=== PATIENT | male | born 1960 | race Caucasian/White ===

== ENCOUNTER 2021-12-31 23:25 | Emergency (ER) | payer MEDICAID, SELFPAY ==
--- NOTE | ~2021-12-31 | XR_ITS ---
EXAMINATION: XR TIBIA AND FIBULA, LEFT CLINICAL INFORMATION: Fall. Pain. COMPARISON: None TECHNIQUE: AP and lateral views of the left tibia and fibula were obtained. FINDINGS: Plate and screw fixation hardware at the proximal tibia. Likely bone cement in place. Hardware appears intact. No acute fractures seen. Alignment grossly maintained at the knee and ankle. The bones are osteopenic. Vascular calcifications. XR/XR tibia fibula LT 2V IMPRESSION: Internal fixation hardware of the proximal tibia appears intact. No acute osseous abnormality noted, although evaluation is limited at the proximal tibia due to the overlying hardware.
--- NOTE | ~2021-12-31 | XR_ITS ---
EXAMINATION: XR LUMBOSACRAL SPINE CLINICAL INFORMATION: Fall with pain COMPARISON: None TECHNIQUE: Three views of the lumbosacral spine. FINDINGS: No fracture or subluxation. Vertebral body height and alignment maintained. Disc spaces are maintained with small multilevel endplate osteophytes. Multilevel facet arthropathy. The sacroiliac joints are symmetric. The visualized sacrum is intact. Normal bowel gas pattern. XR/XR lumbar spine 2-3V IMPRESSION: Mild degenerative change throughout the lumbar spine.
[2021-12-31 23:30] VITALS: BP 129/69; BP 132/50; PULSE 70; PULSE 73; RESP 22; TEMP 36.9; O2SAT 96; BMI 24.7
[2022-01-01] MEDS: oxyCODONE HCl Immed Release 5 MG TABLET PO (00:38)
--- NOTE | 2022-01-01 00:41 | ED_ITS ---
HPI - Fall General Chief Complaint: Fall Stated Complaint: Fall/Lower Back Pain/Leg pain Time Seen by Provider: 01/01/22 00:32 Source: patient and EMS Mode of arrival: EMS Limitations: no limitations History of Present Illness HPI Narrative: 61-year-old male came in by ambulance, patient normally is wheelchair bound, patient was trying to go the bathroom when he got up from the wheelchair he lost balance and fell backward. Patient is complaining of back pain and left leg pain, patient has a chronic low back pain and leg pain. Patient declined any head injury LOC. Past medical history significant for throat cancer. Related Data Previous Rx's Medication Instructions Recorded oxycodone 5 mg tablet 5 mg PO BID PRN pain #7 tabs 01/01/22 Allergies Allergy/AdvReac Type Severity Reaction Status Date / Time No Known Allergies Allergy Verified 12/31/21 23:36 Review of Systems Review of Systems: All other systems are reviewed and are negative Constitutional: Reports as per HPI and Reports no additional constitutional complaints Eyes: Reports as per HPI and Reports no additional eye complaints Reports system reviewed and no additional complaints, except as documented Cardiovascular: Reports as per HPI and Reports no additional cardiovascular complaints Respiratory: Reports as per HPI and Reports no additional respiratory complaints Gastrointestinal: Reports as per HPI and Reports no additional gastrointestinal complaints Genitourinary: Reports no additional female genitourinary complaints Musculoskeletal: Reports no additional musculoskeletal complaints Skin/Breast: Reports system reviewed and no additional complaints, except as docu Psychiatric: Reports no additional psychiatric complaints Endocrine: Reports no additional endocrine complaints Hematologic/Lymphatic: Reports no additional hematologic/lymphatic complaints Allergic/Immunologic: Reports no additional allergic/immunologic complaints Reports system reviewed and no additional complaints, except as documented and Reports Abnormal speech present Physical Exam Vital Signs: Vital Signs: Last Vital Signs Temp 98.4 F 12/31/21 23:30 Pulse 73 12/31/21 23:30 Resp 22 H 12/31/21 23:30 BP 132/50 L 12/31/21 23:30 Pulse Ox 96 12/31/21 23:30 O2 Del Method 12/31/21 23:30 BMI result Body Mass Index 24.7 Vital signs have been reviewed as appeared to be correct. Blood pressure normal. Heart rate normal. Respiration rate normal. Temperature normal. Oxygen saturation normal. Appearance: Alert. Oriented X3. No acute distress. Head: Normal external exam. Normocephalic. Atraumatic. No Lira signs noted. No raccoon eyes noted Eyes: PERRLA. EOMI. Conjunctiva and sclera normal. Eyelids normal. ENT: TM's Normal. Pharynx normal. Uvula midline. Moist mucous membranes. No trismus noted. No drooling noted. No muffled voice noted. Neck: Normal inspection. Neck supple. Tracheostomy opening, FROM. No adenopat hy. Thyroid Normal. No meningeal signs. No neck mass noted. CVS: Normal heart rate and rhythm. Heart sound normal. No murmurs noted. Pulses normal throughout. Respiratory: No respiratory distress. Painless inspiration. Breath sounds normal. No wheezes/rales/rhonchi noted. Chest nontender. No accessory muscle usage noted or decreased air movement noted. Abdomen: Soft and nontender. Bowel sounds normal in all 4 quadrants. No distention noted. No organomegaly noted. No visible injury noted. Back: No CVA tenderness. Full range of motion noted. No lower back deformity no step-off tenderness to touch Skin: Skin warm and dry. Normal skin color. Normal skin turgor. No rashes/lesions/lacerations noted. Extremities: Left leg tenderness, no deformity. With chronic wound on the anterior of left leg. Neuro: Oriented X 3. Cranial nerve exam: II-XII are grossly intact No motor deficit. No sensory deficit. Reflexes normal. Course Course Course Narrative: 61-year-old male who is a wheelchair-bound fell twice today hurting his back, no head injury. X-ray is unremarkable for acute fracture. Will discharge on the oxycodone. MDM - Fall Imaging Data Lumbar spine: Attestation: I personally reviewed and interpreted this imaging study as follows: Radiologist's impression: Degenerative disease with no acute fracture. Left leg x-ray: Attestation: I personally reviewed and interpreted this imaging study as follows: Radiologist's impression: No acute fracture or deformity. Discharge Plan Discharge Clinical Impression: Accident due to mechanical fall without injury, Acute exacerbation of chronic low back pain Patient Disposition: Home, Self-Care Instructions: Chronic Back Pain (DC) Prescriptions: New oxycodone 5 mg tablet 5 mg PO BID PRN (Reason: pain) Qty: 7 0RF Rx Instructions: Partial Fill upon patient request.
[2022-01-01 03:05] VITALS: BP 132/68; PULSE 74; RESP 18; O2SAT 95
== END 2022-01-01 03:06 | disposition home or self-care (01) ==
LOC: HO.ED 01-01 02:50
PROVIDERS: Emergency Provider Emergency Medicine
DX: Z04.3 Encounter for examination and observation following other accident (principal); G89.29 Other chronic pain; M54.50 Low back pain, unspecified; M79.605 Pain in left leg
CPT/HCPCS: 72100; 73590; 99283

== ENCOUNTER 2022-01-09 22:28 | Emergency (ER) | payer MEDICAID, SELFPAY ==
--- NOTE | 2022-01-09 22:51 | PC.NURSE ---
Per ems: pt is very hostile with EMS assessment. Pt has history of being aggressive but not violent . Pt was found by [facility] in town knocking on strangers door . Concerns presented Regarding pt's ability to gather resources for wheelchair repair and medication compliance was present.
--- NOTE | 2022-01-09 23:00 | PC.NURSE ---
Pt is able to stand and pivot w/ assistance to wheel chair in [place]
[2022-01-09 23:01] VITALS: BP 147/55; PULSE 70; RESP 18; TEMP 36.8; O2SAT 95; BMI 24.3
[2022-01-09 23:23] LABS: Appearance Urine Cloudy; Color Urine Yellow; Glucose Urine UA Negative (Negative); Leukocyte Esterase Urine Negative (Negative); Nitrite Urine Negative (Negative); Specific Gravity - Urine <= 1.005 (1.005-1.025); Urine Blood Negative (Negative); Urine Ketones Negative (Negative); Urine Protein Negative (Neg-Trace)
[2022-01-09 23:41] LABS: Amphetamine Screen Urine Not Detected (Not Detect); Barbiturates, Urine Not Detected (Not Detect); Benzodiazepines Screen Urine Not Detected (Not Detect); Cannabinoid Screen Urine Not Detected (Not Detect); Cocaine Screen Urine Not Detected (Not Detect); Fentanyl, urine Not Detected (Not Detect); Opiate Screen Urine Not Detected (Not Detect); Phencyclidine Screen Urine Not Detected (Not Detect)
[2022-01-10 00:48] VITALS: BP 136/57; PULSE 77; RESP 18; O2SAT 98
--- NOTE | 2022-01-10 01:27 | ED_ITS ---
HPI - Back Pain/Injury General Chief Complaint: Fall Stated Complaint: Back pain post fall Time Seen by Provider: 01/10/22 00:46 Source: patient Mode of arrival: EMS Limitations: language barrier (Patient had throat cancer status post surgery, with trach. Patient right answers but can talk but has no voice) History of Present Illness HPI Narrative: 61-year-old male who has a history of chronic back pain secondary to degenerative disc disease who presents emergency department complaining of severe lower back pain. The patient states that [facility] for approximately 8 months. He states that when he was discharged he was not given sufficient social services specialist. The patient was taking oxycodone 20 mg 4 times a day for his pain and he states that he does not have a doctor that prescribed this medication for him. He states that on Saturday (6 days prior to evaluation) he fell and now has acute pain on top of his chronic pain. States he is having severe, constant pain in his left and right lower back area which is 10/10. He states that his doctor wanted to put him on Suboxone and he has been on Suboxone in the past which is helped his pain however he has no appetite and cannot eat while he is on Suboxone. He states that he is not getting sufficient money or food stamps and needs social service help. He denied fever, chills, chest pain, shortness of breath, nausea, vomiting, diarrhea. The patient lives in [facility]. The patient states that he has gone to different emergency departments and he had not gotten any help with his pain control or with his social issues.. The patient was seen in our emergency department on 01/01/2022 for fall with increased back pain. He had x-rays at that time which were unremarkable. He was given a limited number of oxycodone 5 mg tablets (7). In reviewing the prescription drug monitoring program informa tion, the patient has had 6 prescription since 10/04/2021 for small amounts of oxycodone from 3 providers and 3 prescriptions for Suboxone for small amounts from 3 providers. Filled Drug QTY Days Prescriber Dispenser SAMPLE SAWYER 01/01/2022 Oxycodone Hcl (Ir) 5 Mg [facility]00 [facility] [place] 11/12/2021 Suboxone 8 Mg-2 Mg Sl Film 10.00 5 Ni [facility] (1604) [place] 10/26/2021 Suboxone 8 Mg-2 Mg Sl Film 14.00 14 Za [facility] (1604) [place] 10/13/2021 Oxycodone Hcl (Ir) 5 Mg Tablet 16.00 4 Br [facility] (4079) [place] 10/09/2021 Suboxone 8 Mg-2 Mg Sl Film 10.[address] [facility] (4079) [place] 10/04/2021 Oxycodone Hcl (Ir) 5 Mg Tablet 10.00 5 [facility] (7509) [place] Related Data Previous Rx's Medication Instructions Recorded oxycodone 5 mg tablet 5 mg PO BID PRN pain #7 tabs 01/01/22 Allergies Allergy/AdvReac Type Severity Reaction Status Date / Time No Known Allergies Allergy Verified 12/31/21 23:36 Review of Systems Review of Systems: Yes all other systems are reviewed and are negative [facility] Past Medical History [facility] Narrative: Past medical history: Chronic back pain secondary to degenerative disc disease, throat cancer status post laryngectomy done at [facility] in [place], January 2021. Social history: The patient lives in [facility]. He drinks beer 2 to 3 times a week. He smokes 4-5 cigarettes per day. He states that he smokes marijuana occasionally. Social History Social History Advance Directives: No Advance Directives Information Provided: No Physical Exam Vital Signs: Vital Signs: Last Vital Signs Temp 98.1 F 01/10/22 04:23 Pulse 74 01/10/22 04:23 Resp 20 01/10/22 04:23 BP 152/76 H 01/10/22 04:23 Pulse Ox 95 01/10/22 04:23 O2 Del Method 01/10/22 04:23 BMI result Body Mass Index 24.3 Const: Other: Awake, alert, male patient, anxious, disheveled, the patient has a tracheostomy stoma, he has no voice since he had a laryngectomy, he is able to talk but he is difficult to comprehend, he is able to write out answers to questions without any difficulty. HEENT: Head: Yes normal to inspection, Yes normocephalic and Yes atraumatic Ears: external ears normal General nose exam: Normal external nose present Face and sinus: Yes normal facial exam Mouth: Normal oral and palatal mucosa present Throat: Yes posterior oropharynx normal Eyes: General: appearance normal, both eyes and all related structures Pupils: Equal, round and reactive pupils present Neck: Other: Tracheostomy stoma Neck: Yes no lymphadenopathy, Yes trachea midline and Yes supple Chest: Chest palpation & inspection: normal inspection of the chest and normal palpation of entire chest wall Resp: Effort & Inspection: normal respiratory effort and able to speak in complete sentences Auscultation: clear to auscultation bilaterally Cardio: Rate: regular rate Rhythm: regular rhythm Heart sounds: S1 normal heart sound present, S2 normal heart sound present and no murmurs GI: Inspection: Yes normal to inspection Palpation (GI): Soft to palpation, nontender and no guarding Auscultation: normal bowel sounds Back/Spine/Pelvis: Other: Tender bilateral lumbar sacral paraspinal muscles, tender along the lumbar sacral spine Skin: General skin exam: no rashes or lesions noted Neuro: Cranial nerves: Yes CN's II-XII intact bilaterally and Yes Equal, round and reactive pupils present Cognition (Neuro): normal cognition Motor exam (neuro): 5/5 motor strength present throughout Extrem: Other: Patient is able to move both lower extremities symmetrically this is caused pain in his back Psych: Appearance: grossly normal Affect: Anxious affect present Attitude: cooperative Course Course Course Narrative: 61-year-old male with a history of chronic back pain secondary to degenerative disc disease who now has acute pain after a fall 6 days prior. The patient states that he was on oxycodone 20 mg 4 times a day but his doctor has stopped prescribed this medication and he has not been able to get into pain management. He states that he has gone to multiple ERs and is gotten small prescriptions for oxycodone and Suboxone with no relief his discomfort. The patient states that he needs social service help and he has not been able to get an since he is unable to talk on the phone. Patient's physical examination did reveal lower lumbar sacral paraspinal muscle tenderness as well as vertebral tenderness. I w ill order blood work on this patient to include CBC, CMP, lipase, urinalysis, urine tox screen. Patient will be treated with oxycodone 20 mg orally. If the patient is medically cleared, he will be kept in the emergency department until he can be evaluated by our case reviewer today to see if he can help get him into some type of pain management program or get him more social service help. 0516: Laboratory evaluation: Low H&H 13.5 and 38 low sodium 132. Low CO2 30. LFTs were normal. Lipase normal. Urine tox screen positive for marijuana pain alcohol below detectable limits. The patient did get some relief with his oxycodone 10 mg orally. 0516: Start physician observation: The patient will be placed in physician observation since you need to be kept in the emergency department until we can get a case management consult and physical therapy consult to see if we can get the patient into a pain management program, acute rehab or increased outpatient services. Also, I did order oxycodone 10 mg every 6 hours for pain while he is here in the emergency department. Also obtain a medical reconciliation in order as outpatient medications. 0733: Physician observation continued: The patient is resting comfortably. At the end of my shift, the patient's care was turned over to my colleague, Dr. Peoples MDM - Back Pain/Injury Lab Data Result diagrams: 01/10/22 02:11 01/10/22 02:11 Labs: Lab Results 01/09/22 01/09/22 01/10/22 Range/Units 23:15 23:15 02:10 WBC (4.8-10.8) X10*3/uL RBC (4.60-5.80) X10*6/uL Hgb (14.0-18.0) g/dl Hct (42.0-52.0) % MCV (80.0-98.0) fL MCH (27.0-33.0) pg MCHC (31.0-36.0) g/dl RDW (11.0-16.0) % Plt Count (160-400) X10*3/uL MPV (9.4-12.4) fL Immature Gran % (Auto) (0.0-0.4) % Neut % (Auto) (45-73) % Lymph % (Auto) (20-40) % Bartholomew % (Auto) (2-11) % Eos % (Auto) (0-4) % Baso % (Auto) (0-2) % Lymph # (Auto) (1.2-4.9) X10*3/uL Bartholomew # (Auto) (0.1-1.2) X10*3/uL Eos # (Auto) (0.0-0.4) X10*3/uL Baso # (Auto) (0.0-0.2) X10*3/uL Abs Immat Gran (auto) (0.00-0.03) X10*3/uL Absolute Neuts (auto) (2.0-8.3) x10*3/uL Absolute Nucleated RBC (0.0-0.012) X10*3/uL Nucleated RBC % (auto) (0.0-0.2) /100WBC Sodium (135-145) mmol/L Potassium (3.3-5.1) mmol/L Chloride (96-108) mmol/L Carbon Dioxide (22-29) mmol/L Anion Gap (12-20) BUN (9-16) mg/dL Creatinine (0.5-1.4) mg/dL Estim Creat Clear Calc Estimated GFR Random Glucose (60-115) mg/dL Calcium (8.4-10.2) mg/dL Total Bilirubin (0.0-1.0) mg/dL AST (5-37) U/L ALT (0-40) U/L Alkaline Phosphatase (39-117) U/L Total Protein (6.5-8.0) g/dL Albumin (3.5-5.0) g/dL Lipase (8-78) U/L Urine Color Yellow Urine Appearance Cloudy Urine pH 6.0 (5.0-9.0) Ur Specific [place] <= 1.005 (1.005-1.025) Urine Protein Negative (Neg-Trace) mg/dL Urine Glucose (UA) Negative (Negative) mg/dL Urine Ketones Negative (Negative) mg/dL Urine Blood Negative (Negative) Urine Nitrite Negative (Negative) Ur Leukocyte Esterase Negative (Negative) Urine Opiates Screen Not Detected (Not Detect) Urine Fentanyl Screen Not Detected (Not Detect) Ur Barbiturates Screen Not Detected (Not Detect) Ur Phencyclidine Scrn Not Detected (Not Detect) Ur Amphetamines Screen Not Detected (Not Detect) U Benzodiazepines Scrn Not Detected (Not Detect) Urine Cocaine Screen Not Detected (Not Detect) U Marijuana (THC) Screen Not Detected (Not Detect) Ethyl Alcohol mg/dL COVID-19 (SHAI) Negative (Negative) COVID-19 Clin Com See Note 01/10/22 01/10/22 01/10/22 Range/Units 02:11 02:11 02:14 WBC 6.9 (4.8-10.8) X10*3/uL RBC 4.29 L (4.60-5.80) X10*6/uL Hgb 13.5 L (14.0-18.0) g/dl Hct 38.5 L (42.0-52.0) % MCV 89.7 (80.0-98.0) fL MCH 31.5 (27.0-33.0) pg MCHC 35.1 (31.0-36.0) g/dl RDW 13.2 (11.0-16.0) % Plt Count 259 (160-400) X10*3/uL MPV 8.6 L (9.4-12.4) fL Immature Gran % (Auto) 0.3 (0.0-0.4) % Neut % (Auto) 62.5 (45-73) % Lymph % (Auto) 23.6 (20-40) % Bartholomew % (Auto) 9.7 (2-11) % Eos % (Auto) 3.3 (0-4) % Baso % (Auto) 0.6 (0-2) % Lymph # (Auto) 1.6 (1.2-4.9) X10*3/uL Bartholomew # (Auto) 0.7 (0.1-1.2) X10*3/uL Eos # (Auto) 0.2 (0.0-0.4) X10*3/uL Baso # (Auto) 0.0 (0.0-0.2) X10*3/uL Abs Immat Gran (auto) 0.02 (0.00-0.03) X10*3/uL Absolute Neuts (auto) 4.3 (2.0-8.3) x10*3/uL Absolute Nucleated RBC 0.000 (0.0-0.012) X10*3/uL Nucleated RBC % (auto) 0.0 (0.0-0.2) /100WBC Sodium 132 L (135-145) mmol/L Potassium 3.5 (3.3-5.1) mmol/L Chloride 100 (96-108) mmol/L Carbon Dioxide 20 L (22-29) mmol/L Anion Gap 16 (12-20) BUN 5 L (9-16) mg/dL Creatinine 0.61 (0.5-1.4) mg/dL Estim Creat Clear Calc 129.6 Estimated GFR > 60 Random Glucose 98 (60-115) mg/dL Calcium 8.9 (8.4-10.2) mg/dL Total Bilirubin 0.3 (0.0-1.0) mg/dL AST 21 (5-37) U/L ALT 16 (0-40) U/L Alkaline Phosphatase 99 (39-117) U/L Total Protein 7.4 (6.5-8.0) g/dL Albumin 3.9 (3.5-5.0) g/dL Lipase 38 (8-78) U/L Urine Color Urine Appearance Urine pH (5.0-9.0) Ur Specific [place] (1.005-1.025) Urine Protein (Neg-Trace) mg/dL Urine Glucose (UA) (Negative) mg/dL Urine Ketones (Negative) mg/dL Urine Blood (Negative) Urine Nitrite (Negative) Ur Leukocyte Esterase (Negative) Urine Opiates Screen Not Detected (Not Detect) Urine Fentanyl Screen Not Detected (Not Detect) Ur Barbiturates Screen Not Detected (Not Detect) Ur Phencyclidine Scrn Not Detected (Not Detect) Ur Amphetamines Screen Not Detected (Not Detect) U Benzodiazepines Scrn Not Detected (Not Detect) Urine Cocaine Screen Not Detected (Not Detect) U Marijuana (THC) Screen POSITIVE H (Not Detect) Ethyl Alcohol < 10 mg/dL COVID-19 ([facility]) (Negative) COVID-19 Clin Com Discharge Plan Discharge Clinical Impression: Acute back pain Qualifiers: Back pain location: low back pain Chronic back pain Qualifiers: Back pain location: low back pain Patient Disposition: Still a Patient Prescriptions: No Action oxycodone 5 mg tablet 5 mg PO BID PRN (Reason: pain) Qty: 7 0RF Rx Instructions: Partial Fill upon patient request.
[2022-01-10] MEDS: oxyCODONE HCl Immed Release 5 MG TABLET 20 MG PO ×2 (02:00→08:12)
[2022-01-10 02:15] LABS: MANUAL DIFF FLAG NO
[2022-01-10 02:16] VITALS: BP 155/78; PULSE 80; RESP 18; O2SAT 96
[2022-01-10 02:16] LABS: Basophils Percent Auto 0.6 % (0-2); Eosinophils Absolute Auto 0.2 X10*3/uL (0.0-0.4); Eosinophils Percent Auto 3.3 % (0-4); Hematocrit 38.5 % (42.0-52.0); Hemoglobin 13.5 g/dl (14.0-18.0); Imm Gran Abs Auto 0.02 X10*3/uL (0.00-0.03); Imm Gran Pct Auto 0.3 % (0.0-0.4); Lymphocytes Absolute Auto 1.6 X10*3/uL (1.2-4.9); Lymphocytes Percent Auto 23.6 % (20-40); Mean Corpuscular HGB Conc 35.1 g/dl (31.0-36.0); Mean Corpuscular Hemoglobin 31.5 pg (27.0-33.0); Mean Corpuscular Volume 89.7 fL (80.0-98.0); Mean Platelet Volume 8.6 fL (9.4-12.4); Monocytes Absolute Auto 0.7 X10*3/uL (0.1-1.2); Monocytes Percent Auto 9.7 % (2-11); Neutrophils Absolute Auto 4.3 x10*3/uL (2.0-8.3); Neutrophils Percent Auto 62.5 % (45-73); Platelet Count 259 X10*3/uL (160-400); Red Blood Count 4.29 X10*6/uL (4.60-5.80); Red Cell Distribution Width 13.2 % (11.0-16.0); White Blood Count 6.9 X10*3/uL (4.8-10.8)
[2022-01-10 02:29] LABS: COVID-19 Test Negative (Negative)
[2022-01-10 02:35] LABS: Amphetamine Screen Urine Not Detected (Not Detect); Barbiturates, Urine Not Detected (Not Detect); Benzodiazepines Screen Urine Not Detected (Not Detect); Cannabinoid Screen Urine POSITIVE (Not Detect); Cocaine Screen Urine Not Detected (Not Detect); Fentanyl, urine Not Detected (Not Detect); Opiate Screen Urine Not Detected (Not Detect); Phencyclidine Screen Urine Not Detected (Not Detect)
[2022-01-10 02:37] LABS: Alanine Aminotransferase 16 U/L (0-40); Albumin Level 3.9 g/dL (3.5-5.0); Alkaline Phosphatase 99 U/L (39-117); Anion Gap 16 (12-20); Aspartate Amino Transferase 21 U/L (5-37); Bilirubin Total 0.3 mg/dL (0.0-1.0); Blood Urea Nitrogen 5 mg/dL (9-16); Calcium 8.9 mg/dL (8.4-10.2); Carbon Dioxide 20 mmol/L (22-29); Chloride 100 mmol/L (96-108); Creatinine Clr Calc Pharmacy 129.6; Estimated Glomerular Filt Rate > 60; Ethanol < 10 mg/dL; Glucose Random 98 mg/dL (60-115); Lipase 38 U/L (8-78); Potassium 3.5 mmol/L (3.3-5.1); Sodium 132 mmol/L (135-145); Total Protein 7.4 g/dL (6.5-8.0)
[2022-01-10 04:23] VITALS: BP 152/76; PULSE 74; RESP 20; TEMP 36.7; O2SAT 95
--- NOTE | 2022-01-10 04:59 | PC.NURSE ---
Patient requested this typewriter repairer to call to [place] [employer] to inquire where is his broken w/c and a guitar. This RN called [place] [employer] at [phone], spoke to officer Rashaad who reported pt's w/c and a guitar at the police office and will be dropped by pt's house when he return home. patient informed and in agreeement.
[2022-01-10 07:29] VITALS: BP 152/76; PULSE 74; O2SAT 95
[2022-01-10 07:54] VITALS: BP 158/59; PULSE 67; RESP 18; TEMP 36.6; O2SAT 96
[2022-01-10 08:10] VITALS: BP 137/67; PULSE 61; RESP 16; O2SAT 97
--- NOTE | 2022-01-10 08:33 | PC.NURSE ---
This RN working as float nurse. Contacted [employer] to arrange for delivery of patients wheelchair and guitar.
== END 2022-01-10 09:21 | disposition home or self-care (01) ==
PROVIDERS: Emergency Provider Emergency Medicine Emergency Medical Services
DX: M51.36 Other intervertebral disc degeneration, lumbar region (principal); M54.50 Low back pain, unspecified; Z20.822 Contact with and (suspected) exposure to COVID-19; Z79.899 Other long term (current) drug therapy
CPT/HCPCS: 80053; 80307; 81003; 82077; 83690; 85025; 87635; 97161; 99284

== ENCOUNTER 2022-01-27 04:16 | Emergency (ER) | payer MEDICAID, SELFPAY ==
--- NOTE | ~2022-01-27 | CT_ITS ---
EXAMINATION: CT LUMBAR SPINE WITHOUT CONTRAST CLINICAL INFORMATION: Low back pain. COMPARISON: X-ray dated 01/01/2022. TECHNIQUE: Multidetector helical imaging acquired in the axial plane with generation of reformatted acquisitions. This CT examination was performed using dose optimization techniques as appropriate, variously including the following: *Automated exposure control *Adjustment of mA and/or kV according to patient size (this includes techniques or standardized protocols for targeted exams where dose is matched to indication/reason for exam; i.e. extremities or head) *Use of iterative reconstruction technique DLP; 500 mGy-cm FINDINGS: There is a mild leftward curvature of the lower lumbar spine. Severe disc space narrowing with endplate bridging ossification noted at the L5-S1 level. No compression fractures are evident. The paraspinal soft tissues appear normal. Significant atherosclerotic wall calcifications of the lower abdominal aorta and common iliac arteries noted. Vacuum phenomenon and SI joint space narrowing noted. L1-L2: Mild disc bulge and mild facet arthropathy with very mild encroachment upon the central canal. Patent foramina. L2-L3: Diffuse disc bulge and hypertrophic facet arthropathy with thickening of the ligamentum flavum and dorsal epidural fat prominence resulting in severe thecal sac distortion. Cikttcqg-aa-[id number] central canal stenosis. Bulging disc results in mild right and moderate left foraminal encroachment. L3-L4: Hypertrophic facet arthropathy and broad-based disc bulge with thickening of the ligamentum flavum resulting in moderate central canal stenosis with dorsal epidural fat prominence. Qikp-rh-ymmemtci foraminal narrowing. L4-L5: Disc bulge and facet arthropathy without central canal stenosis. Bulging disc and osseous spurring result in gfhhteeo-bx-[id number] right foraminal encroachment. Milder left foraminal narrowing. L5-S1: Severe degenerative endplate changes and disc space narrowing with facet arthropathy. No central canal stenosis. Ijqi-dn-kaoscytl foraminal narrowing, more so on the left side. CT/CT lumbar spine wo IV con IMPRESSION: Multilevel spondylosis with ozqjthnd-hg-bugrnc central canal stenosis and significant thecal sac distortion at the L2-L3 and L3-L4 levels. No compression fractures. Severe disc space narrowing and degenerative endplate spurring with bridging ossification anteriorly at the L5-S1 level.
[2022-01-27 04:19] VITALS: BP 142/68; PULSE 88; O2SAT 96
[2022-01-27 04:37] VITALS: BP 130/64; PULSE 76; RESP 18; TEMP 36.6; O2SAT 95; BMI 23.7
--- NOTE | 2022-01-27 08:14 | ED.GENADULT ---
HPI - General Adult General Chief complaint: Extremity Problem Stated complaint: BACK PAIN S/P MOVING HEAVY FURNITURE PER EMS Time Seen by Provider: 01/27/22 05:17 Source: patient Mode of arrival: ambulatory Limitations: no limitations History of Present Illness HPI narrative: 61-year-old male who has a history of chronic back pain secondary to degenerative disc disease who presents emergency department complaining of severe lower back pain status post heavy lifting yesterday. Patient tells me that yesterday he was moving heavy furniture and started experiencing back pain localized to his lower back that at times radiates in to his extremities bilaterally usually above the knee. Patient tells me a family member recently , and he took some of their furniture for his apartment which he tried moving by himself such as desks, tables. Patient tells me pain is severe, constant in nature worse with movement better at rest. Patient denies fevers, chills, chest pain, shortness of breath, nausea, vomiting, abdominal pain, saddle paresthesias, weakness, urinary/bowel incontinence/retention, history of back surgeries or back procedures, IV drug abuse. Patient reports used to be on oxycodone for pain control however he is no longer getting prescribed this. Patient is noted to have a dressing to his left lower extremity, he tells me he has a chronic wound to the left lower extremity which he is currently being followed for. Patient also mentions that he recently got a social contact worker however, has not been able to get food stamps. I asked him if he needed additional resources at home and wanted to speak to physical therapy any case management while he was here and he tells me no. Related Data Previous Rx's Medication Instructions Recorded oxycodone 5 mg tablet 5 mg PO BID PRN pain #7 tabs 01/01/22 cyclobenzaprine 10 mg tablet 10 mg PO BEDTIME PRN muscle spasm 01/27/22 #7 tabs lidocaine 5 % topical patch 1 patch topical DAILY PRN pain #15 01/27/22 ea Allergies Allergy/AdvReac Type Severity Reaction Status Date / Time No Known Allergies Allergy Verified 12/31/21 23:36 Review of Systems Review of Systems: Constitutional : No Weight loss, No Fever, No Chills, No Fatigue, No Malaise ENT/Mouth : No sore throat, No Rhinorrhea Eyes: No Eye Pain, No Swelling, No Redness Cardiovascular : No Chest Pain, No SOB, No Dyspnea on Exertion, No Orthopnea, No Edema, No Palpitations Respiratory : No Cough, No Sputum, No Wheezing Gastrointestinal : No Nausea, No Vomiting, No Diarrhea, No Constipation, No abdominal Pain, No Hematochezia, No Melena Genitourinary : No Dysuria, No Urinary Frequency, No Hematuria, Musculoskeletal : + joint pain, No Myalgias, No Joint Swelling Skin : No Skin Lesions, No rash Neuro : No Weakness, No Numbness, No Dizziness, No Headache Psych : No Anxiety/Panic, No Depression All other systems reviewed and are negative Yes all other systems are reviewed and are negative [facility] Past Medical History Attestation statement: The following information was validated with the patient. Source: old records reviewed and nursing notes reviewed Social History Social History Advance Directives: No Advance Directives Information Provided: No Physical Exam ED Vital Signs: Vital Signs - 24 hr 01/27/22 04:37 01/27/22 08:37 01/27/22 08:43 Temperature 97.9 F 98.2 F Pulse Rate 76 62 Respiratory Rate 18 19 Blood Pressure 130/64 165/69 H Pulse Oximetry 95 95 Oxygen Delivery Method Room Air Room Air BMI result Body Mass Index 23.7 vss Appearance: Alert.? Oriented X3.? No acute distress.? Head: Normocephalic, atraumatic, no step-offs or deformities Eyes: Pupils equal, round and reactive to light.? CVS: Normal heart rate and rhythm.? Pulses normal.? Respiratory: No respiratory distress.? Breath sounds normal.? Abdomen: Soft and nontender.? Skin: Skin warm and dry.? Normal skin color.? Normal skin turgor.? Extremities: No lower extremity edema.? No calf ttp. 5/5 strength to bilateral upper and lower extremities 2+ DTRs to bilateral patellar region + chronic wound below left knee with overlying dressing (present for 3 years per patient and currently being followed by medical professional) Back: + lower lumbar sacral paraspinal muscle tenderness as well as vertebral tenderness. no C-spine tenderness, full range of motion however painful secondary to nguyen, no CVA tenderness bilaterally Neuro: Oriented X 3.? No motor deficit.? No sensory deficit. CN 2-12 intact . At this time patient cannot ambulate secondary to pain however will re-evaluate prior to patient discharge no saddle paresthesias. Normal sensation to lower extremities. Course Reevaluation(s) Reevaluation #1: Patient was able to get up from a chair and ambulate to a wheelchair within the room. Patient ambulating with steady gait normal coordination. Time: 08:40 Reevaluation #2: Before I was able to go a speak to patient about CT results patient wheeled himself out of the emergency department and eloped. Patient states that he wants more pain meds, I was willing to give patient pain medicine however was going to wait a little longer as he got morphine at almost 09:00. I also had discussed with him PT and case management which she refused. Patient was able to take a few steps and ambulate while in our department. No saddle paresthesias, low suspicion for cauda equina. Nursing staff did speak to patient and patient tells them that he does not want to be here any longer. Patient left without me being able to go speak to him. At time of elopement patient was able to ambulate, he was eating and drinking without difficulty. Appeared comfortable and in no signs of distress per nursing. Time: 12:03 Medical Decision Making [facility] Narrative Medical decision making narrative: 08 61-year-old male history of chronic back pain presents with acute back pain status post heavy lifting. To note patient has presented to the emergency department before for similar issues, acute on chronic back pain it appears as though he was seen here on 01/10/2022, at that time patient states he was on oxycodone 20 mg 4 times a day however his doctor stopped prescribing that medication and he was not able to get into pain management. He was evaluated by Physical therapy and Case Management and was dc home w/ info for [facility]. And PCP info for chronic pain folow up Physical examination with painful range of motion to back particularly with flexion, extension. Lower lumbar sacral paraspinal muscle tenderness as well as vertebral tenderness. Neuro nonfocal. DTRs intact. Normal sensation to lower extremities, no saddle paresthesias. Likely acute on chronic back pain secondary to degenerative disc disease. Unlikely cauda equina or epidural abscess. Other differentials include lumbar strain/sprain. Medical Records Medical records reviewed: Yes I reviewed the patient's medical records. Lab Data Lab results reviewed: Yes I reviewed the patient's lab results. Critical Care Time Critical Care Time Critical Care Time: No Discharge Plan Discharge Clinical Impression: Acute exacerbation of chronic low back pain Patient Disposition: Elopement Instructions: Pain Management (ED), Chronic Pain (ED) Additional Instructions: Take your medications as prescribed. If you were prescribed antibiotics today, it is important that you take your medication to their entirety, do not skip any doses, do not finish them early. Follow-up with your primary care provider this week. Return to the emergency department with new or worsening symptoms. Such as fevers, chills, chest pain, shortness of breath, nausea, vomiting, dizziness, headache, vision changes, lethargy In case of emergency call 911 Prescriptions: New cyclobenzaprine 10 mg tablet 10 mg PO BEDTIME PRN (Reason: muscle spasm) Qty: 7 0RF lidocaine 5 % adhesive patch,medicated 1 patch topical DAILY PRN (Reason: pain) Qty: 15 0RF Rx Instructions: leave on most painful area for up to 12 hrs No Action oxycodone 5 mg tablet 5 mg PO BID PRN (Reason: pain) Qty: 7 0RF Rx Instructions: Partial Fill upon patient request. Referrals: Physician,Unknown J [Primary Care Provider] - 2 days
[2022-01-27 08:37] VITALS: PULSE 62; RESP 19; TEMP 36.8; O2SAT 95
[2022-01-27 08:43] VITALS: BP 165/69
[2022-01-27] MEDS: Morphine Sulfate Immed Release 15 MG TABLET PO (08:48)
--- NOTE | 2022-01-27 12:04 | PC.NURSE ---
Patient encouraged to stay but was agitated and left. Provider and charge nurse aware.
== END 2022-01-27 12:05 | disposition left against medical advice (07) ==
PROVIDERS: Emergency Provider Internal Medicine
DX: G89.29 Other chronic pain (principal); M54.50 Low back pain, unspecified; M47.816 Spondylosis without myelopathy or radiculopathy, lumbar region; M48.061 Spinal stenosis, lumbar region without neurogenic claudication
CPT/HCPCS: 72131; 99283; 99284

== ENCOUNTER 2022-01-28 04:55 | Emergency (ER) | payer MEDICAID, SELFPAY ==
[2022-01-28 05:01] VITALS: BMI 26.6
--- NOTE | 2022-01-28 08:32 | PC.NURSE ---
pt has been sleeping on and off in wr. easily arouable to voice. skin pwd
== END 2022-01-28 10:59 | disposition left against medical advice (07) ==
PROVIDERS: Emergency Provider Emergency Medicine
DX: M54.50 Low back pain, unspecified (principal); M25.562 Pain in left knee
CPT/HCPCS: 99281

== ENCOUNTER 2022-03-19 21:42 | Emergency (ER) | payer MEDICAID, SELFPAY ==
--- NOTE | 2022-03-19 21:50 | ED.BACK ---
HPI - Back Pain/Injury General Chief Complaint: Headache Stated Complaint: back pain and headache Time Seen by Provider: 03/19/22 21:49 Source: patient Mode of arrival: ambulatory History of Present Illness HPI Narrative: Patient with chronic back pain, throat cancer status post tracheostomy chronic weakness wheelchair-bound comes here multiple times asking for pain medication comes here for similar complaint no recent fall patient had a CT scan of lumbar spine done on 01/27/2022 which showed moderate - severe central canal stenosis. Patient's head does not have any pain medication at home patient also complaining of headache which is chronic no nausea no vomiting head injury no fever or chills Related Data Previous Rx's Medication Instructions Recorded oxycodone 5 mg tablet 5 mg PO BID PRN pain #7 tabs 01/01/22 cyclobenzaprine 10 mg tablet 10 mg PO BEDTIME PRN muscle spasm 01/27/22 #7 tabs lidocaine 5 % topical patch 1 patch topical DAILY PRN pain #15 01/27/22 ea cyclobenzaprine 10 mg tablet 10 mg PO Q8H #20 tabs 03/19/22 oxycodone 5 mg tablet 5 mg PO Q6H PRN Pain (Scale Score 03/19/22 7-10) #20 tabs Allergies Allergy/AdvReac Type Severity Reaction Status Date / Time No Known Allergies Allergy Verified 01/28/22 05:04 Review of Systems Review of Systems: Yes all other systems are reviewed and are negative COUNT INCLUDES THE [facility] Social History Social History Advance Directives: No Advance Directives Information Provided: No Physical Exam Vital Signs: Vital Signs: Last Vital Signs Temp 98.8 F 03/19/22 21:56 Pulse 101 H 03/19/22 21:56 Resp 22 H 03/19/22 21:56 BP 132/60 03/19/22 21:56 Pulse Ox 95 03/19/22 21:56 O2 Del Method 03/19/22 21:56 BMI result Body Mass Index 26.3 Appearance: Alert. Oriented X3. No acute distress. Eyes: PERRLA, No Nystagmus ENT: Pharynx normal. Oral Mucosa moist tracheostomy stoma+ Neck: Normal inspection. Neck supple. CVS: Normal heart rate and rhythm. Pulses normal. Respiratory: No respiratory distress. Equal air entry bilateral, no wheezing/rales/rhonchi Abdomen: Soft and nontender. Bowel sounds are present, no mass palpable, no CVA tenderness Back; diffuse tenderness lumbar spine Skin: Skin warm and dry. Normal skin color. Normal skin turgor. Extremities: No lower extremity edema. No calf tenderness Neuro: Oriented X 3. General proximal weakness lower extremities reflexes 2+ Babinski negative MDM - Back Pain/Injury MDM Narrative Medical decision making narrative: Patient with chronic back pain on wheelchair for last 2 1/2 year history of throat cancer status post laryngectomy on chronic pain medication does not have any pain medicine at home no recent fall. Patient had CT scan of the spine lumbar spine 2 months ago which showed moderate to severe lumbar canal stenosis. Will discharge patient home on pain management advised to follow with pain clinic Discharge Plan Discharge Clinical Impression: Chronic bilateral back pain Patient Disposition: Home, Self-Care Instructions: Chronic Back Pain (DC) Additional Instructions: Take pain medication as prescribed and follow with PCP/Pain Clinic Prescriptions: New cyclobenzaprine 10 mg tablet 10 mg PO Q8H Qty: 20 0RF oxycodone 5 mg tablet 5 mg PO Q6H PRN (Reason: Pain (Scale Score 7-10)) Qty: 20 0RF Rx Instructions: Partial Fill upon patient request. No Action oxycodone 5 mg tablet 5 mg PO BID PRN (Reason: pain) Qty: 7 0RF Rx Instructions: Partial Fill upon patient request. cyclobenzaprine 10 mg tablet 10 mg PO BEDTIME PRN (Reason: muscle spasm) Qty: 7 0RF lidocaine 5 % adhesive patch,medicated 1 patch topical DAILY PRN (Reason: pain) Qty: 15 0RF Rx Instructions: leave on most painful area for up to 12 hrs
[2022-03-19 21:56] VITALS: BP 132/60; BP 134/70; PULSE 101; PULSE 76; RESP 22; TEMP 37.1; O2SAT 95; O2SAT 96; BMI 26.3
[2022-03-19 22:35] VITALS: BP 157/65; PULSE 98; RESP 16; TEMP 36.4; O2SAT 94
[2022-03-19] MEDS: oxyCODONE HCl Immed Release 5 MG TABLET 10 MG PO (22:39)
[2022-03-19] MEDS: Ketorolac Tromethamine 60 MG/2 ML VIAL IM (22:40)
--- NOTE | 2022-03-19 22:56 | PC.NURSE ---
pt medicated according to MAR at time of discharge. discharge packet provided to pt. discharged to waiting room
== END 2022-03-19 22:58 | disposition home or self-care (01) ==
PROVIDERS: Emergency Provider Internal Medicine
DX: G89.29 Other chronic pain (principal); M54.50 Low back pain, unspecified
CPT/HCPCS: 96372; 99283; 99284; J1885

== ENCOUNTER 2023-01-16 09:46 | Day surgery (SDC) | payer OTHER, SELFPAY ==
[2023-01-16] VITALS (9 sets, daily range): BP systolic 110–150; BP diastolic 46–84; PULSE 76–139; RESP 14–20; TEMP 36.6–37.4; O2SAT 95–98; BMI 28.7
--- NOTE | ~2023-01-16 | XR_ITS ---
EXAMINATION: XR CHEST CLINICAL INFORMATION: Dyspnea COMPARISON: None available. TECHNIQUE: Frontal view of the chest was obtained. FINDINGS: Tracheostomy. Bilateral low lung volumes. Chronic interstitial lung markings. Right basilar atelectasis. Thorax. Trachea is midline. Cardiomediastinal silhouette is not enlarged. Aorta demonstrates atherosclerotic calcifications. Degenerative changes of the thoracolumbar spine. Surgical material overlying the lower neck. XR/XR chest 1V IMPRESSION: 1. Tracheostomy. 2. Bilateral low lung volumes. 3. Chronic interstitial lung markings. 4. Right basilar atelectasis.
--- NOTE | ~2023-01-16 | CT_ITS ---
EXAMINATION: CT ANGIOGRAM CHEST CLINICAL INFORMATION: Concern for innominate bleed. Bleeding tracheostomy. Dyspnea. COMPARISON: None available. TECHNIQUE: Multidetector CT imaging examination of the chest is performed in the arterial phase of intravenous administration of 70 mL Omnipaque 350. No contrast reaction reported. Axial images and multiplanar reformatted images are reviewed. Two-dimensional maximum intensity projection images were generated on the geospatial technologist workstation and reviewed. Note that there was no image postprocessing on any independent workstations. No three-dimensional images are obtained. This CT examination was performed using dose optimization techniques as appropriate, variously including the following: *Automated exposure control *Adjustment of mA and/or kV according to patient size (this includes techniques or standardized protocols for targeted exams where dose is matched to indication/reason for exam; i.e. extremities or head) *Use of iterative reconstruction technique DLP: 541 mGy-cm FINDINGS: LUNGS AND PLEURA: Mild centrilobular emphysema and mildly thickened bronchial ridley. No evidence of a suspicious lung nodule, mass or pleural effusion. No pneumothorax. The tip of a tracheostomy tube is seen within the tracheostomy soft tissue defect but is not positioned distally within the lumen of the trachea. CARDIOVASCULAR: The heart size is normal. No pericardial effusion. Pulmonary arteries are normal in caliber. Severe three-vessel coronary artery atherosclerotic calcification is present. Thoracic aorta atherosclerosis without aneurysm. Mild atherosclerosis of the great vessels arising from the aortic arch without significant stenosis. The innominate artery is unremarkable. Moderate atherosclerotic disease of carotid bulbs and proximal internal carotid arteries. MEDIASTINUM AND LOWER NECK: No mediastinal mass or hematoma. The esophagus is unremarkable. No evidence of an active arterial bleed within soft tissues of the neck. There is soft tissue emphysema around the site of tracheostomy and in subcutaneous tissues of the anterior chest wall. Multiple surgical clips are present within the lower neck, status post thyroidectomy. LYMPHATICS: No pathologic sized lymph nodes. UPPER ABDOMEN: Adrenal glands are unremarkable. Left renal stone is partially included in the [id number]. SKELETAL AND CHEST WALL: Osteoarthritis of bilateral glenohumeral joints. Lipoma is present in soft tissues between the right trapezius and rhomboid muscles. Chondrocalcinosis and multilevel discovertebral degenerative change of the spine. No suspicious osseous lesion. CT/CT angio chest aorta IMPRESSION: * Mild pulmonary emphysema. * No evidence of pneumonia. * The tip of a tracheostomy tube is within the soft tissue defect; consider advancing further into the lumen of the trachea. * Soft tissue emphysema is present around the tracheostomy and within the subcutaneous tissues of the anterior chest wall. No hematoma. No evidence of an active arterial bleed. * Atherosclerotic disease of coronary arteries. Also, there is thoracic aorta atherosclerosis without aneurysm or dissection.
--- NOTE | ~2023-01-16 | XR_ITS ---
EXAMINATION: XR CHEST CLINICAL INFORMATION: Status post trach change COMPARISON: 01/16/2023 TECHNIQUE: Frontal view of the chest was obtained. FINDINGS: Tracheostomy appears in place in the midline. Surgical clips in the neck. The cardiomediastinal silhouette is stable. Low lung volumes. Some atelectasis in the lung bases. No dense consolidation. No pneumothorax. XR/XR chest 1V IMPRESSION: Tracheostomy appears in place in the midline.
[2023-01-16 10:14] LABS: MANUAL DIFF FLAG NO
[2023-01-16] MEDS: Tranexamic Acid 1,000 MG/10 ML VIAL 500 MG INHALE (10:16)
[2023-01-16 10:18] LABS: Basophils Percent Auto 0.4 % (0-2); Eosinophils Absolute Auto 0.3 X10*3/uL (0.0-0.4); Eosinophils Percent Auto 3.5 % (0-4); Hemoglobin 14.2 g/dl (14.0-18.0); Imm Gran Abs Auto 0.04 X10*3/uL (0.00-0.03); Imm Gran Pct Auto 0.4 % (0.0-0.4); Lymphocytes Absolute Auto 1.3 X10*3/uL (1.2-4.9); Lymphocytes Percent Auto 14.1 % (20-40); Mean Corpuscular HGB Conc 35.5 g/dl (31.0-36.0); Mean Platelet Volume 8.8 fL (9.4-12.4); Monocytes Absolute Auto 0.8 X10*3/uL (0.1-1.2); Monocytes Percent Auto 8.3 % (2-11); Neutrophils Percent Auto 73.3 % (45-73); Platelet Count 309 X10*3/uL (160-400); Red Cell Distribution Width 13.2 % (11.0-16.0); White Blood Count 9.5 X10*3/uL (4.8-10.8)
[2023-01-16 10:22] LABS: INTERNATIONAL NORM RATIO 0.8 (0.9-1.1); Prothrombin Time 10.3 SEC (11.1-13.3)
[2023-01-16 10:25] LABS: Partial Thromboplastin Time 29.7 SEC (26.0-36.4)
[2023-01-16 10:34] LABS: Alanine Aminotransferase 27 U/L (0-40); Alkaline Phosphatase 73 U/L (39-117); Anion Gap 16 (12-20); Aspartate Amino Transferase 17 U/L (5-37); Bilirubin Direct 0.1 mg/dL (0.0-0.5); Bilirubin Total 0.4 mg/dL (0.0-1.0); Blood Urea Nitrogen 14 mg/dL (9-16); Calcium 9.5 mg/dL (8.4-10.2); Carbon Dioxide 22 mmol/L (22-29); Chloride 104 mmol/L (96-108); Creatinine Clr Calc Pharmacy 108.4; Estimated Glomerular Filt Rate > 60; Glucose Random 105 mg/dL (60-115); Magnesium 1.8 mg/dL (1.6-2.6); Potassium 3.8 mmol/L (3.3-5.1); Sodium 138 mmol/L (135-145); Total Protein 7.7 g/dL (6.5-8.0)
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
[2023-01-16] MEDS: iohexoL 350 MG/ML 100 ML INFUS..BTL 70 ML IV (11:10)
--- NOTE | 2023-01-16 11:23 | PC.RT ---
pt arrived in ED via AMS. Found pt on rm 13 on stretcher withmod tammy blood coming from stoma as patients trach was out and on his chest. Same trach placed back in as it was energent. Now there is a spare 10.0 shiley uncuffed at the bedside and pt is on 28% cool aerosol and blood has stopped. Pt suctioned many times for bloody secretions but has dissipated since the txa neb tx. Pt said he was coughing all night and her tried on several attempts to place it back in causing him to bleed. pt does have a 10.0 Shiley uncuffed that was revised on 01/09/2023 at [facility] in [place]. I requested that Dr. Hurst come and see patients as he did give us direction about repacking trach and given TXA via neb. ? Dr. Plaza will come see patient as well. Pt did have a CT chest with contrast and CXR done both results pending. Pt resting very quietly at this time with no resp distress noted. Sats 97% rr 16 BS: clear and trach patent. Pt using his phone and watching tv. Will continue to monitor and assess.
--- NOTE | 2023-01-16 12:36 | PC.NURSE ---
PT WANTS TO LEAVE AMA, HE STATES HE CAN CALL AN uBER OR lYFT, ALERT, NAD, NO BLEEDING,
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
--- NOTE | 2023-01-16 14:22 | PC.NURSE ---
Patient arrived to preop with three IVs. #20 right AC. #22 left hand, #20 left AC. All IV sites asymptomatic, flushed with no issues.
--- NOTE | 2023-01-16 15:04 | W.PM.OPN ---
Operative Note Operative Note Date of Service: 01/16/23 Narrative: Preoperative diagnosis: [] tracheostomy tube dislodgement Postop diagnosis: [] same Procedure [] new tracheostomy tube replacement Surgeon: [] Bola Sales Consultant Insurance: [] Type of Anesthesia: [] MAC Indication for surgery: [] patient is status post total laryngectomy with end tracheostomy several years ago. He developed a stomal stricture. This was revised at [facility] approximately 5 days ago. Patient presents here because the tracheostomy tube placed to bridge the revision has dislodged. Patient tried to replace this himself and resulted in local wound bleeding.This is a short limb wound size 10 tracheostomy tube. Patient had this replaced in the operating room with a long limb and size 10 tracheostomy tube Findings: [] patient brought to the operating room, placed on table supine position, after adequate level of MAC anesthesia was induced, patient was appropriate position with a shoulder roll and uneventful removal of the short limb tracheostomy size 10 was replaced With a long limb sized 10 tracheostomy tube. The patient had good O2 sats end-tidal CO2 was registered and the patient was clinically stable at completion of the procedure. The new t Tracheostomy tube was sutured to neck using interrupted 2-0 silk sutures to the tracheostomy flange on either side. Trach was then secured using Velcro straps. Sponge, needle, instrument counts reported correct. Patient tolerated procedure well and emerged anesthesia to the recovery room stable condition. EBL none Postprocedure chest x-ray performed in recovery room was within normal limits.
== END 2023-01-16 16:10 | disposition home or self-care (01) ==
LOC: HO.ED 13:13 → HO.SSS 13:53
PROVIDERS: Emergency Provider Emergency Medicine; PCP Internal Medicine; Visit Provider Surgery
PROC: (CPT 31502; principal; 2023-01-16 13:30)
DX: J95.01 Hemorrhage from tracheostomy stoma (principal); Y84.8 Other medical procedures as the cause of abnormal reaction of the patient, or of later complication, without mention of misadventure at the time of the procedure; Y92.9 Unspecified place or not applicable; Z85.21 Personal history of malignant neoplasm of larynx; Z90.02 Acquired absence of larynx; R05.9 Cough, unspecified; M54.9 Dorsalgia, unspecified; G89.29 Other chronic pain; E87.1 Hypo-osmolality and hyponatremia; M86.9 Osteomyelitis, unspecified; R06.02 Shortness of breath; F10.20 Alcohol dependence, uncomplicated; Z79.1 Long term (current) use of non-steroidal anti-inflammatories (NSAID); Z79.899 Other long term (current) drug therapy; Z87.891 Personal history of nicotine dependence
CPT/HCPCS: 31502; 36415; 71045; 71275; 80048; 80076; 83735; 85025; 85610; 85730; 86850; 86900; 86901; 94640; 99284; 99285; J0690; J2250; Q9967

== ENCOUNTER → 2023-01-16 10:31 | Outpatient (BNV) | payer OTHER, SELFPAY | PROVIDERS: Emergency Provider Emergency Medicine; PCP Internal Medicine; Visit Provider Surgery | DX: J95.01 Hemorrhage from tracheostomy stoma (principal) | CPT/HCPCS: 31502; 99285 ==